=== PATIENT | male | born 2000 | race Caucasian/White ===

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

== ENCOUNTER 2022-02-03 01:46 | Emergency (ER) | payer OTHER, SELFPAY ==
[2022-02-03 01:57] VITALS: BP 129/79; PULSE 76; RESP 18; TEMP 36.7; O2SAT 100
--- NOTE | 2022-02-03 02:13 | ED.EAR ---
HPI - Ear Problem General Chief complaint: Ear Stated complaint: left ear pain Time Seen by Provider: 02/03/22 01:54 Source: RN notes reviewed History of Present Illness HPI Narrative: Patient presents emergency room from home for left ear pain. History is per the patient as well as the patient's mother as patient is a poor historian secondary to developmental delay the patient has a history of recurrent cerumen impactions and is followed by ENT Dr. Reis this evening the patient came in because mother his left ear hurt states it felt like it was plugged up again. Patient has had no fevers or chills he denies any rhinorrhea sore throat denies any cough only notes left ear pain states he has decreased hearing out of his left ear Related Data Home Medications Medication Instructions Recorded Confirmed aripiprazole 2 mg tablet (Abilify) 2 mg PO DAILY 05/16/19 11/03/21 buspirone 10 mg tablet 10 mg PO BID 05/16/19 11/03/21 Allergies Allergy/AdvReac Type Severity Reaction Status Date / Time No Known Allergies Allergy Unknown Verified 11/03/21 10:51 Review of Systems Review of Systems: Gen.: Denies fevers or chills ENT: see HPI Respiratory: Denies shortness of breath or cough CV: Denies chest pain GI: Denies abdominal pain nausea, emesis Musculoskeletal: Denies back pain or muscle pain Neuro: Denies headache Skin: Denies rash Except as documented, all other systems reviewed and negative [facility] Past Medical History Medical History Autism Social History Social History Smoking status: Never smoker Second hand tobacco smoke exposure: No Alcohol intake: never Substance use: never Substance use type: does not use Gender identity (if verbalized by the patient): Male Exam Narrative: APPEARANCE: No acute distress, nontoxic, resting in bed Eyes: EOMI HEENT: Normocephalic, atraumatic, bilateral cerumen impaction nares patent RESPIRATORY: No respiratory distress MUSCULOSKELETAl: Moves all extremities NEURO: Awake and alert. Following commands, speech normal, no focal deficits SKIN:: Warm, dry. Normal Color no rash or lesions Course Course Emergency Course: Patient with bilateral ear irrigation with removal large amount of cerumen following this bilateral TMs are normal in appearance patient states ear pain has resolved ready for discharge Discussed with patient results of workup and diagnosis. Discussed need for follow-up with primary care, proper use of medication, and reasons to return to the emergency department. Patient understands and agrees to current treatment plan Vital Signs Vital signs: Vital Signs Temperature 98.1 F 02/03/22 01:57 Pulse Rate 76 02/03/22 01:57 Respiratory Rate 18 02/03/22 01:57 Blood Pressure 129/79 02/03/22 01:57 Pulse Oximetry 100 02/03/22 01:57 Oxygen Delivery Room Air 02/03/22 01:57 Temperature 98.1 F 02/03/22 01:57 Pulse Rate 76 02/03/22 01:57 Respiratory Rate 18 02/03/22 01:57 Blood Pressure 129/79 02/03/22 01:57 Pulse Oximetry 100 02/03/22 01:57 Oxygen Delivery Room Air 02/03/22 01:57 Medical Decision Making Vital Signs Vital Signs: Vital Signs Temperature 98.1 F 02/03/22 01:57 Pulse Rate 76 02/03/22 01:57 Respiratory Rate 18 02/03/22 01:57 Blood Pressure 129/79 02/03/22 01:57 Pulse Oximetry 100 02/03/22 01:57 Oxygen Delivery Room Air 02/03/22 01:57 Temperature 98.1 F 02/03/22 01:57 Pulse Rate 76 02/03/22 01:57 Respiratory Rate 18 02/03/22 01:57 Blood Pressure 129/79 02/03/22 01:57 Pulse Oximetry 100 02/03/22 01:57 Oxygen Delivery Room Air 02/03/22 01:57 Discharge Plan Discharge Clinical Impression: Impacted cerumen of both ears Patient Disposition: Home, Self-Care Condition: Stable Instructions: Antibiotic Form Prescriptions: No Action
== END 2022-02-03 02:28 | disposition home or self-care (01) ==
PROVIDERS: Emergency Provider Emergency Medicine; PCP Otolaryngology
DX: H61.23 Impacted cerumen, bilateral (principal); F84.0 Autistic disorder
CPT/HCPCS: 69209; 99282

== ENCOUNTER 2022-04-06 10:09 | Emergency (ER) | payer OTHER, SELFPAY ==
[2022-04-06 10:14] VITALS: BP 130/72; PULSE 98; RESP 18; TEMP 36.8; O2SAT 98
--- NOTE | 2022-04-06 10:29 | ED.URI ---
HPI - URI/Sore Throat General Chief Complaint: Upper Respiratory Infection Stated Complaint: Ear Pain/Congestion Time Seen by Provider: 04/06/22 10:10 Source: patient, family and RN notes reviewed History of Present Illness HPI Narrative: Patient is a 22-year-old male who presents to Urgent Care with his mother, patient has a history of autism, with complaints of pulling on the left ear, nasal congestion, sneezing and hoarse voice. Mother also reports a slight cough since Monday. States that he does see an ENT for excessive ear wax which does tend to really be bothersome. Denies any fevers, nausea, vomiting or recent illness. No other acute complaints. No acute distress noted. Patient cooperative. Mother aware of the plan of care. Some parts of this dictation were generated by voice recognition software and may contain typographical and/or grammatical inaccuracies. Related Data Home Medications Medication Instructions Recorded Confirmed aripiprazole 2 mg tablet (Abilify) 2 mg PO DAILY 05/16/19 04/06/22 buspirone 10 mg tablet 10 mg PO BID 05/16/19 04/06/22 Allergies Allergy/AdvReac Type Severity Reaction Status Date / Time No Known Allergies Allergy Unknown Verified 04/06/22 10:11 Review of Systems Review of Systems: CONSTITUTIONAL: Denies fever, chills, or sweats. EYES: Denies visual changes, redness, or discharge. ENT: Reports rhinorrhea, postnasal drainage, sinus congestion pulling left ear CARDIOVASCULAR: Denies chest pain, palpitations, or edema. RESPIRATORY: Reports nonproductive cough without dyspnea GASTROINTESTINAL: Denies abdominal pain, nausea, vomiting, or diarrhea. GENITOURINARY: Denies dysuria or hematuria. SKIN: Denies rash or itching. MUSCULOSKELETAL: Denies back pain, joint pain, or myalgia. NEUROLOGIC: Denies headache, numbness, or weakness. All other systems reviewed are negative, except as documented in HPI. [facility] Past Medical History Medical History (Updated 04/06/22 @ 10:41 by JAMES Lai) Autism Social History Social History (Updated 02/07/22 @ 11:08 by Radha Pinto [facility]) Smoking status: Never smoker Second hand tobacco smoke exposure: No Alcohol intake: never Substance use: never Substance use type: does not use Lack of Transportation: No Lack of Food: Never True Current Housing: I Have Housing Concerned About Future Housing: No Difficulty Paying Gas/Electric Bills: No Difficulty Paying for Meds: No Currently Unemployed: No Education: Grade School Difficulty w/ Childcare or Family Care: No Living arrangements: with family Gender identity (if verbalized by the patient): Male Comments At the time of my signature, I reviewed and agree with the nursing past medical, surgical, social, and family history. There is no relevant family history pertinent to the patient complaint. Exam Narrative: GENERAL: This is a well-nourished, well-developed patient, in no apparent distress. HEAD: normocephalic, atraumatic. EYES: PERRL. Sclera clear/white. Vision is grossly intact. EARS: External ears normal, auditory canals clear and without drainage, bilateral cerumen noted without impactions. TMs normal without perforation. Hearing grossly intact. NOSE: External nose normal with no obvious nasal discharge, nares without redness, no rhinorrhea. THROAT: Mucous membranes moist, posterior pharynx clear. Moderate postnasal drainage NECK: Neck supple, non-tender without lymphadenopathy CARDIOVASCULAR: Regular rate and rhythm RESPIRATORY: Clear to auscultation. Breath sounds equal bilaterally. No wheezes, rales, or rhonchi. SKIN: warm, intact with no suspicious lesions or rash, good texture and turgor. NEURO: awake, alert, and oriented to person, place and time. There were no obvious focal neurologic abnormalities. EXTREMITIES: No clubbing, cyanosis, or edema. Course Course Level of Care: Express Care Visit Vital Signs Vital signs: Vital Signs
== END 2022-04-06 10:45 | disposition home or self-care (01) ==
PROVIDERS: Emergency Provider Nurse Practitioner Family; PCP Family Medicine
DX: H61.23 Impacted cerumen, bilateral (principal); F84.0 Autistic disorder
CPT/HCPCS: 69210; 99213; G0463

== ENCOUNTER 2022-04-20 09:22 | Emergency (ER) | payer OTHER, SELFPAY ==
[2022-04-20 09:27] VITALS: BP 128/72; PULSE 85; RESP 18; TEMP 36.5; O2SAT 99
--- NOTE | 2022-04-20 09:33 | ED.EAR ---
HPI - Ear Problem General Chief complaint: Ear Stated complaint: Right Ear Pain Time Seen by Provider: 04/20/22 09:43 Source: patient and RN notes reviewed Mode of arrival: ambulatory Limitations: no limitations History of Present Illness HPI Narrative: 22-year-old male with history of autism presents with concern for right ear pain. Mother reports history of excess cerumen, cerumen impactions. Reports they get his ears cleaned out every 3 months at his ENT. Reports he had the left ear cleaned out at the end of March here. Reports he has been taking in the ear. Reports wax drainage from the ear. Denies fever MD Complaint: ear pain Related Data Home Medications Medication Instructions Recorded Confirmed aripiprazole 2 mg tablet (Abilify) 2 mg PO DAILY 05/16/19 04/06/22 buspirone 10 mg tablet 10 mg PO BID 05/16/19 04/06/22 Allergies Allergy/AdvReac Type Severity Reaction Status Date / Time No Known Allergies Allergy Unknown Verified 04/20/22 09:45 Review of Systems Review of Systems: CONSTITUTIONAL: Denies malaise, chills, sweats, or fever. EYES: Denies visual changes, redness, or discharge. ENT: Denies rhinorrhea, congestion, sinus pain, and sore throat. Reports ear pain CARDIOVASCULAR: Denies chest pain, palpitations, or edema. RESPIRATORY: Denies cough. Denies dyspnea. GASTROINTESTINAL: Denies abdominal pain, nausea, vomiting, diarrhea SKIN: Denies rash or itching. MUSCULOSKELETAL: Denies myalgia. NEUROLOGIC: Denies headache. All systems reviewed & are unremarkable except as noted in HPI and below PMFSH Past Medical History Medical History (Updated 04/20/22 @ 09:56 by Radha Casas NP) Autism Social History Social History (Updated 02/07/22 @ 11:08 by ALEKSANDR Lobo) Smoking status: Never smoker Second hand tobacco smoke exposure: No Alcohol intake: never Substance use: never Substance use type: does not use Lack of Transportation: No Lack of Food: Never True Current Housing: I Have Housing Concerned About Future Housing: No Difficulty Paying Gas/Electric Bills: No Difficulty Paying for Meds: No Currently Unemployed: No Education: Grade School Difficulty w/ Childcare or Family Care: No Living arrangements: with family Gender identity (if verbalized by the patient): Male Comments At time of signature, agree with nursing past medical, surgical, social and family history. There is no relevant family history pertinent to the presenting complaint Exam Narrative: GENERAL: Well-appearing, well-nourished, and in no acute distress. HEAD: Normocephalic EYES: PERRLA, conjunctivae clear ENT: Nares clear, no discharge. Mucous membranes moist. Left TM pearly pop with sharp light reflex right TM not to excess cerumen slight erythema noted in the EAC; right tragal tenderness. NECK: Supple. HEART: Regular rate and rhythm SKIN: Warm, dry, no rash. NEURO: Alert and oriented x3. PSYCH: Normal mood and affect Course Course Emergency Course: Patient is aware of diagnosis, understands and agrees to treatment plan. Anticipatory guidance given. Patient agrees to follow-up as directed and is aware of reasons to seek care at the emergency department. Portions of this record may have been created with voice recognition software Level of Care: Express Care Visit Vital Signs Vital signs: Vital Signs Temperature 97.7 F 04/20/22 09:27 Pulse Rate 85 04/20/22 09:27 Respiratory Rate 18 04/20/22 09:27 Blood Pressure 128/72 04/20/22 09:27 Pulse Oximetry 99 04/20/22 09:27 Oxygen Delivery Room Air 04/20/22 09:27 Temperature 97.7 F 04/20/22 09:27 Pulse Rate 85 04/20/22 09:27 Respiratory Rate 18 04/20/22 09:27 Blood Pressure 128/72 04/20/22 09:27 Pulse Oximetry 99 04/20/22 09:27 Oxygen Delivery Room Air 04/20/22 09:27 Reviewed. Procedures Ear Wax Removal Right Ear: Ear Wax Removal Date: 04/20/22 Ear Wax Removal
== END 2022-04-20 10:00 | disposition home or self-care (01) ==
PROVIDERS: Emergency Provider Nurse Practitioner; PCP Otolaryngology
DX: H61.21 Impacted cerumen, right ear (principal)
CPT/HCPCS: 69209; 99212; G0463

== ENCOUNTER 2023-05-10 20:41 | Emergency (ER) | payer OTHER, SELFPAY ==
--- NOTE | ~2023-05-10 | XR_ITS ---
EXAMINATION: XR chest 2V DATE: 05/10/2023 22:06 INDICATION: Cough and fever TECHNIQUE: AP and lateral views of the chest are obtained. COMPARISON: None available FINDINGS: There are minimal airspace opacities of the lung bases. No pleural effusion or pneumothorax . The cardiomediastinal silhouette is normal. The visualized bones and soft tissues are unremarkable. IMPRESSION: 1. Bibasilar airspace opacities, consistent with atelectasis versus pneumonia. Reviewed, dictated and finalized at location F. IOGNOMIST
[2023-05-10 20:43] VITALS: BP 139/86; PULSE 136; RESP 19; TEMP 37.1; O2SAT 97
[2023-05-10 21:01] VITALS: TEMP 37
--- NOTE | 2023-05-10 21:12 | ED.URI ---
HPI - URI/Sore Throat General Chief Complaint: Upper Respiratory Infection Stated Complaint: fever, cough, vomiting, diarrhea, chills Time Seen by Provider: 05/10/23 20:49 Source: patient and family Mode of arrival: ambulatory Limitations: no limitations History of Present Illness HPI Narrative: This is a 23 year old male that presents to the ER for cold symptoms present over the last 4 days. Reports fever, cough, congestion, sore throat, rhinorrhea. Also reports nausea, vomiting and diarrhea. Denies shortness of breath. Related Data Home Medications Medication Instructions Recorded Confirmed aripiprazole 2 mg tablet (Abilify) 2 mg PO DAILY 05/16/19 03/15/23 buspirone 10 mg tablet 10 mg PO BID 05/16/19 03/15/23 Allergies Allergy/AdvReac Type Severity Reaction Status Date / Time No Known Allergies Allergy Unknown Verified 03/15/23 11:58 Review of Systems Review of Systems: CONSTITUTIONAL: Reports fever ENT: Reports rhinorrhea, congestion, sore throat RESPIRATORY: Reports cough. Denies dyspnea. GASTROINTESTINAL: Reports nausea, vomiting, and diarrhea. All systems reviewed & are unremarkable except as noted in HPI and below PMFSH Past Medical History Medical History (Updated 05/10/23 @ 23:52 by Josephine Barkley PA-C) Autism Social History Social History (Updated 03/15/23 @ 12:06 by Alejandra Claros CMA) Smoking status: Never smoker Second hand tobacco smoke exposure: No Alcohol intake: never Substance use: never Substance use type: does not use Lack of Transportation: No Lack of Food: Never True Current Housing: I Have Housing Concerned About Future Housing: No Difficulty Paying Gas/Electric Bills: No Difficulty Paying for Meds: No Currently Unemployed: No Education: High School Diploma/GED Difficulty w/ Childcare or Family Care: No Living arrangements: with family Gender identity (if verbalized by the patient): Male Exam Narrative: GENERAL: Well-appearing, well-nourished, and in no acute distress. HEAD: Normocephalic, atraumatic. EYES: EOMI. ENT: Nares clear, no rhinorrhea or epistaxis. Mucous membranes moist. Oropharynx without tonsillar hypertrophy exudate or other lesions. Bilateral TMs pearly pop non-bulging NECK: Supple. No adenopathy or masses. CHEST: Clear to auscultation. No respiratory distress. No wheezes rales or rhonchi HEART: Tachycardic, regular rhythm. No murmur heard. Normal peripheral pulses. ABDOMEN: Soft, nontender, nondistended, normal active bowel sounds. EXTREMITIES: Normal range of motion. No edema. SKIN: Warm, dry, no rash. NEURO: No focal deficits. Alert and oriented x3. PSYCH: Normal mood and affect Course Course Emergency Course: Patient and family updated on his workup and agree with plan of care. He reports feeling much better. Is ready for discharge. Able to tolerate PO challenge Vital Signs Vital signs: Vital Signs Temperature 98.8 F 05/10/23 20:43 Pulse Rate 136 H 05/10/23 20:43 Respiratory Rate 19 05/10/23 20:43 Blood Pressure 139/86 05/10/23 20:43 Pulse Oximetry 97 05/10/23 20:43 Oxygen Delivery Room Air 05/10/23 20:43 Temperature 98.6 F 05/10/23 21:01 Pulse Rate 113 H 05/10/23 22:30 Respiratory Rate 19 05/10/23 22:30 Blood Pressure 122/72 05/10/23 22:30 Pulse Oximetry 96 05/10/23 22:30 Oxygen Delivery Room Air 05/10/23 21:07 MDM - URI/Sore Throat MDM Narrative Medical decision making narrative: Patient presents to the emergency department for viral symptoms present over the last 4 days. He is afebrile and nontoxic appearing. Tachycardic to the 130s upon arrival, this down trended with IV fluid hydration. CBC without leukocytosis. Metabolic panel with some evidence of dehydration with sodium of 128 and bicarb of 21. He was hydrated with 2L of fluids. Patient is influenza A positive. Chest x-ray shows likely atelectasis. Patient and family updated on his workup an
[2023-05-10] MEDS: SODIUM CHLORIDE 0.9% IV 1,000 ML 999 ML IV CONT ×2 (21:26→22:30)
[2023-05-10] MEDS: FAMOTIDINE 20 MG/2 ML VIAL IV PUSH (21:27)
[2023-05-10] MEDS: ONDANSETRON INJ 4 MG/2 ML VIAL IV PUSH (21:27)
[2023-05-10] MEDS: KETOROLAC 15 MG/ML VIAL (*BKC) IV PUSH (21:27)
[2023-05-10 21:32] LABS: Influenza A QL RT-PCR Positive (Negative); Influenza B QL RT-PCR Negative (Negative); RSV RNA, RT-PCR Negative (Negative); SARS-CoV-2 RNA PCR Negative (Negative)
[2023-05-10 21:42] LABS: Basophils Percent Auto 0.2 % (0.2-1.2); Hematocrit 39.4 % (42.0-52.0); Immature Granulocyte Absolute 0.03 K/mm3 (0.00-0.031); Immature Granulocyte Percent A 0.5 % (0-0.5); Immature Platelet Fraction Pct 2.7 % (0.9-11.2); Lymphocytes Absolute Auto 1.03 K/mm3 (0.9-3.2); Mean Corpuscular HGB Conc 35.5 g/dl (32-36); Mean Corpuscular Hemoglobin 32.3 pg (26-34); Mean Corpuscular Volume 90.8 fl (80-100); Mean Platelet Volume 9.7 fl (7.4-10.4); Monocytes Absolute Auto 0.3 K/mm3 (0.1-0.6); Monocytes Percent Auto 4.2 % (2.6-8.5); Neutrophils Absolute Auto 5.1 K/mm3 (1.3-6.7); Neutrophils Percent Auto 79.1 % (45.5-73.1); Platelet Count Result 127 k/mm3 (150-375); Red Blood Count 4.34 M/mm3 (4.6-6.20); Red Cell Distribution Width 12.8 % (11.5-14.5); White Blood Count 6.4 K/mm3 (4.5-10.0)
[2023-05-10 21:52] LABS: Alanine Aminotransferase 60 U/L (6-50); Albumin Level 3.9 g/dL (3.5-5.1); Alkaline Phosphatase 60 U/L (38-126); Anion Gap 7 mmol/L (8-16); Aspartate Amino Transferase 134 U/L (17-59); Bilirubin,Total 1.2 mg/dL (0.2-1.3); Blood Urea Nitrogen 19 mg/dL (9-20); Calcium 8.4 mg/dL (8.4-10.2); Carbon Dioxide 21 mmol/L (22-30); Chloride 100 mmol/L (98-107); Estimated CRCL calculation 140 ml/min; Estimated Glomerular Filt Rate > 60; Glucose 99 mg/dL (65-110); Lipase 62 U/L (23-300); Potassium 3.7 mmol/L (3.4-5.0); Sodium 128 mmol/L (137-145)
[2023-05-10 22:07] LABS: Strep Group A RT-PCR NOT DETECTED (Negative)
[2023-05-10 22:30] VITALS: BP 122/72; PULSE 113; RESP 19; O2SAT 96
[2023-05-10 23:45] VITALS: BP 125/71; PULSE 107; RESP 16; O2SAT 97
== END 2023-05-11 00:09 | disposition home or self-care (01) ==
PROVIDERS: Emergency Medicine; Emergency Provider Physician Assistant; PCP Otolaryngology
DX: J10.1 Influenza due to other identified influenza virus with other respiratory manifestations (principal); E86.0 Dehydration; Z20.822 Contact with and (suspected) exposure to COVID-19; F84.0 Autistic disorder; R91.8 Other nonspecific abnormal finding of lung field
CPT/HCPCS: 36415; 71046; 80053; 83690; 85025; 85055; 87637; 87651; 96361; 96374; 96375; 99284; J1885; J2405; J7030

== ENCOUNTER 2023-09-13 07:15 | Emergency (ER) | payer OTHER, SELFPAY ==
[2023-09-13 07:15] VITALS: BP 122/73; PULSE 99; RESP 12; TEMP 36.8; O2SAT 95
--- NOTE | 2023-09-13 07:19 | ECG_ITS ---
Test Date: 2023-09-13 08:23:43 Measurements Intervals [place] Rate: 105 P: 11 PA: 156 QRS: 0 QRSD: 102 T: -4 QT: 306 QTc: 405 Interpretive Statements SINUS TACHYCARDIA DELAYED PRECORDIAL R/S TRANSITION BORDERLINE T WAVE ABNORMALITY- INFERIOR LEADS BASELINE ARTIFACT- I, III, AVR, AVL, AVF, V1-V4 ABNORMAL ECG No previous ECG available for comparison Electronically Signed On 09-13-2023 10:36:30 CDT by Patrick Diamond D.O.
[2023-09-13] MEDS: LORazepam INJ (*CRX) 2 MG/ML VIAL 1 MG IV PUSH (07:27)
[2023-09-13] MEDS: ONDANSETRON INJ 4 MG/2 ML VIAL IV PUSH ×2 (07:28→08:06)
[2023-09-13] MEDS: SODIUM CHLORIDE 0.9% IV 1,000 ML 999 ML IV CONT (07:28)
[2023-09-13 07:29] LABS: Basophils Absolute Auto 0.1 K/mm3 (0.0-0.1); Basophils Percent Auto 0.6 % (0.2-1.2); Eosinophils Absolute Auto 0.1 K/mm3 (0-0.3); Eosinophils Percent Auto 0.5 % (0-4.4); Hematocrit 44.3 % (42.0-52.0); Hemoglobin 15.2 g/dL (14.0-18.0); Immature Granulocyte Absolute 0.04 K/mm3 (0.00-0.031); Immature Granulocyte Percent A 0.4 % (0-0.5); Lymphocytes Absolute Auto 2.57 K/mm3 (0.9-3.2); Lymphocytes Percent Auto 24.8 % (18.3-44.2); Mean Corpuscular HGB Conc 34.3 g/dl (32-36); Mean Corpuscular Hemoglobin 32.8 pg (26-34); Mean Corpuscular Volume 95.7 fl (80-100); Mean Platelet Volume 9.2 fl (7.4-10.4); Monocytes Absolute Auto 0.5 K/mm3 (0.1-0.6); Monocytes Percent Auto 4.8 % (2.6-8.5); Neutrophils Absolute Auto 7.1 K/mm3 (1.3-6.7); Neutrophils Percent Auto 68.9 % (45.5-73.1); Platelet Count Result 225 k/mm3 (150-375); Red Blood Count 4.63 M/mm3 (4.6-6.20); Red Cell Distribution Width 13.5 % (11.5-14.5); White Blood Count 10.4 K/mm3 (4.5-10.0)
[2023-09-13 07:38] LABS: Acetaminophen < 10 ug/mL (10-30); Ethanol < 10 mg/dL (<10); Salicylate < 1.0 mg/dL (2-20)
[2023-09-13 07:45] VITALS: BP 122/84; PULSE 105; RESP 22; O2SAT 95
[2023-09-13 07:48] LABS: Alanine Aminotransferase 39 U/L (6-50); Albumin Level 4.6 g/dL (3.5-5.1); Alkaline Phosphatase 101 U/L (38-126); Anion Gap 13 mmol/L (4-12); Aspartate Amino Transferase 38 U/L (17-59); Bilirubin,Total 1.1 mg/dL (0.2-1.3); Blood Urea Nitrogen 10 mg/dL (9-20); Calcium 9.5 mg/dL (8.4-10.2); Carbon Dioxide 19 mmol/L (22-30); Chloride 107 mmol/L (98-107); Estimated CRCL calculation 166 ml/min; Estimated Glomerular Filt Rate > 60; Glucose 143 mg/dL (65-110); Potassium 3.3 mmol/L (3.4-5.0); Sodium 139 mmol/L (137-145)
[2023-09-13] MEDS: PROCHLORPERAZINE EDISYLATE 10 MG/2 ML VIAL IV PUSH (08:28)
[2023-09-13] MEDS: diphenhydrAMINE HCl INJ 50 MG/ML VIAL 25 MG IV PUSH (08:28)
[2023-09-13 08:30] VITALS: BP 118/83; PULSE 113; RESP 24; O2SAT 96
--- NOTE | 2023-09-13 09:08 | PC.NURSE ---
Patient resting at this time. Family at bedside. Vital signs are WNL.
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
[2023-09-13 09:30] VITALS: BP 112/61; PULSE 99; RESP 25; O2SAT 93
[2023-09-13 10:15] VITALS: BP 121/74; PULSE 75; RESP 22; O2SAT 98
--- NOTE | 2023-09-13 12:06 | PC.NURSE ---
Patient ambulated to restroom with assistance of mother
[2023-09-13 12:23] VITALS: BP 123/74; PULSE 86; RESP 18; O2SAT 100
== END 2023-09-13 13:17 | disposition home or self-care (01) ==
PROVIDERS: Emergency Provider Emergency Medicine; PCP Family Medicine
DX: F84.0 Autistic disorder (principal); F41.9 Anxiety disorder, unspecified
CPT/HCPCS: 36415; 80053; 80307; 84443; 85025; 93005; 96361; 96374; 96375; 96376; 99284; J0780; J1200; J2060; J2405; J7030